=== PATIENT | male | born 1955 | race Caucasian/White ===

== ENCOUNTER 2021-08-23 13:30 | Emergency (ER) | payer MEDICAID ==
[~2021-08-23] VITALS: Ht 175.3 cm; Wt 68.2 kg
[2021-08-23 13:40] VITALS: BP 160/89
== END 2021-08-23 15:06 | disposition home or self-care (01) ==
LOC: EMS 13:35
DX: B02.9 Zoster without complications (principal)
CPT/HCPCS: 99283

== ENCOUNTER 2021-09-05 07:36 | Emergency (ER) | payer MEDICAID ==
[~2021-09-05] VITALS: Ht 172.7 cm; Wt 70.5 kg
[2021-09-05 09:07] VITALS: BP 140/80
== END 2021-09-05 09:09 | disposition home or self-care (01) ==
LOC: EMS 07:38
DX: B02.9 Zoster without complications (principal)
CPT/HCPCS: 99281; Z7502